=== PATIENT | female | born 1960 | race Asian ===

== ENCOUNTER 2020-06-02 09:52 | Outpatient (CLI) | payer OTHER, SELFPAY | END 2020-06-02 23:59 | disposition home or self-care (01) | LOC: MLB 09:52 → EDSTATUS 06-09 10:15 | PROVIDERS: ATTEND Internal Medicine Gastroenterology | DX: Z01.818 Encounter for other preprocedural examination (principal); Z11.59 Encounter for screening for other viral diseases | CPT/HCPCS: U0003-CS ==